=== PATIENT | male | born 1955 | race Caucasian/White ===

== ENCOUNTER 2017-02-24 12:52 | Emergency (ER) | payer OTHER ==
[~2017-02-24 12:52] MED LIST: ADVIN25/60 INH; ALBU1AER9 INH; ASPI81TA21 PO; ASTN; ATEN100T PO; FLNIN NAE; HYDR25TA4 PO; MELO15TA4 PO; MONT1TAB3 PO; OMEP40CA41 PO; TRIA0.1C20 TOP
[2017-02-24 12:57] VITALS: TEMP 36.8; Ht 180.3 cm
[2017-02-24] MEDS ORDERED: FLNIN NAE (13:39)
[2017-02-24] MEDS ORDERED: ALBU18002 INH (13:39)
--- NOTE | 2017-02-24 14:25 | DIAGNOSTIC IMAGING REPORT ---
R HAND MIN 3 VIEWS ROUTINE HISTORY: 61 years-old Male R hand little finger pain acute right fifth digit pain COMPARISON: None available TECHNIQUE: 3 views of the right hand FINDINGS: Subcortical cystic changes are seen within several of the metacarpals and phalanges. Mild interphalangeal joint space narrowing throughout. Subcortical cystic changes are also seen within the distal ulna. Note is made of 3 mm negative ulnar variance. Mild first carpometacarpal osteoarthritis. No acute fracture or dislocation. Soft tissues are unremarkable without opaque foreign body. IMPRESSION: 1. No acute fracture or dislocation. 2. Degenerative changes as above. The above report was generated using voice recognition software. It may contain grammatical, syntax or spelling errors. Electronically signed by: Mykel Willson M.D. 02/24/2017 2:24 PM Dictated Date/Time: 02/24/2017 2:21 PM
[2017-02-24] MEDS ORDERED: CEPH500C PO (14:26)
[2017-02-24] MEDS ORDERED: XYLOCAINE 1%/SOD BICARB 20 ML VIAL INFIL ONE (14:45)
[2017-02-24 15:40] VITALS: BP 144/86; PULSE 76; O2SAT 96
[2017-02-24 15:58] LABS: HEPATITIS B AB POS
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
== END 2017-02-24 16:17 | disposition home or self-care (01) ==
LOC: C.EDA 12:53 → C.EDD 16:17
DX: S61.256A Open bite of right little finger without damage to nail, initial encounter (principal); S61.257A Open bite of left little finger without damage to nail, initial encounter; S51.852A Open bite of left forearm, initial encounter; S41.152A Open bite of left upper arm, initial encounter; S60.511A Abrasion of right hand, initial encounter; S60.512A Abrasion of left hand, initial encounter; M25.511 Pain in right shoulder; Y04.1XXA Assault by human bite, initial encounter; Y99.0 Civilian activity done for income or pay; Y92.238 Other place in hospital as the place of occurrence of the external cause; I10 Essential (primary) hypertension; K21.9 Gastro-esophageal reflux disease without esophagitis; Z79.82 Long term (current) use of aspirin

== ENCOUNTER → 2017-06-05 | Day surgery (SDC) | payer OTHER ==
[2017-05-31 13:13] VITALS: Ht 180.3 cm; Wt 156.8 kg
[~2017-06-05] VITALS: Ht 180.3 cm; Wt 156.8 kg
[~2017-06-05] MED LIST changes: +ALBU18002 INH; -ALBU1AER9 INH; +AMOX500C3 PO; +FENTANYL CITRATE INJ 50 MCG/1 ML 2 ML VIAL ONE; +IBUP-1105 PO; +LIDOCAINE HCL 2% 2 ML VIAL (20MG/ML) ONE; +MIDAZOLAM HCL 1 MG/ML 2ML VIAL ONE; +PROPOFOL IV EMULSION 10 MG/ML 20 ML VIAL IV ONE; +PSEU60TA80 PO; +SODIUM CHLORIDE 0.9% 500ML 500 ML IV ONE; -TRIA0.1C20 TOP
--- NOTE | 2017-06-05 11:00 | Endo History and Physical ---
History & Physical Date of Service: Jun 05, 2017. Chief Complaint: HISTORY OF COLON POLYPS Referring Physician: DR AYALA History of Present Illness H/o polyps Past Medical History Arthritis, Asthma, Reflux, Hypertension, Other Past Surgical History Hx Cardiac Surgery: No Hx Internal Defibrillator: No Hx Pacemaker: No Hx Abdominal Surgery: Yes (JAIME) Hx of Implantable Prosthesis: No Hx Post-Op Nausea and Vomiting: No Hx Cancer Surgery: No Hx Thoracic Surgery: No Hx Orthopedic: Yes (LT TKA) Hx Urinary Tract Surgery: No Family History Esophogeal [place] Social History Smoking Status: Never Smoker Hx Substance Use: No Hx Alcohol Use: No Allergies Coded Allergies: Rivaroxaban (Verified Allergy, Severe, RASH, 06/05/17) [place] (Verified Adverse Reaction, Unknown, GENERALIZED RASH, 06/05/17) Fish Oil (Verified Adverse Reaction, Unknown, GENERALIZED RASH, 06/05/17) Current Medications Reported Home Medications Medications Dose Route/Sig Max Daily Dose Days Date Category Mucinex D (Pseudoephedrine-Guaifenesin) 1 Tab Tab 1 Tab PO BID PRN 05/31/17 Reported Ibuprofen 200 Mg Tab 2-3 Tabs PO Q4H PRN 05/31/17 Reported Amoxil (Amoxicillin) 500 Mg Cap 4 Cap PO UD PRN 05/31/17 Reported Fluticasone Propionate 50 Mcg/Act Spr 2 [place] TSERING DAILY PRN 02/24/17 Reported Proair Respiclick (Albuterol Sulfate) 108 Mcg/Act Aer 2 Puffs INH Q4 PRN 02/24/17 Reported Ecotrin Or Generic (Aspirin) 81 Mg Tab 81 Mg PO QPM 04/08/12 Reported Advair Diskus 250/50 60 Dose (Fluticasone Prop/Salmeterol) 1 Ea Aerp 1 Puff INH Q12HR PRN 04/08/12 Reported Astelin Nasal [place] (Azelastine Hcl) 200 Sprays/30 Ml [place] 2 Sprays NA BID PRN 04/08/12 Reported Singulair (Montelukast Sodium) 10 Mg Tab 10 Mg PO QPM 04/08/12 Reported Hctz (Hydrochlorothiazide) 25 Mg Tab 25 Mg PO QPM 04/08/12 Reported Mobic (Meloxicam) 15 Mg Tab 15 Mg PO QPM 04/08/12 Reported Tenormin (Atenolol) 100 Mg Tab 100 Mg PO QPM 04/08/12 Reported Prilosec (Omeprazole) 40 Mg Cap 40 Mg PO QPM 04/08/12 Reported Vital Signs Weight (Kilograms): 156.82 Height (Feet): 5 Height (Inches): 11 Date Time Temp Pulse Resp B/P (MAP) Pulse Ox O2 Delivery O2 Flow Rate FiO2 06/05/17 09:31 37.4 74 20 120/83 (95) 97 Room Air Physical Exam General Appearance: no apparent distress Respiratory/Chest: Auscultation: breath sounds normal Cardiovascular: Heart Auscultation: RRR Abdomen: Inspection & Palpation: soft Assessment and Plan H/o polyps - surveillance cscopy
--- NOTE | 2017-06-05 11:46 | Discharge Instructions ---
Endoscopy Patient Instructions Date / Procedure(s) Performed Jun 05, 2017. Colonoscopy Allergy Information Coded Allergies: Rivaroxaban (Verified Allergy, Severe, RASH, 06/05/17) [place] (Verified Adverse Reaction, Unknown, GENERALIZED RASH, 06/05/17) Fish Oil (Verified Adverse Reaction, Unknown, GENERALIZED RASH, 06/05/17) Discharge Date / Findings Jun 05, 2017. Diminutive cecal polyp Medication Instructions Stopped Medication(s): ASPIRIN [id number] MOBIC 06-02-17 Resume aspirin, mobic tomorrow. Provider Instructions Activity Restrictions - No exercising or heavy lifting for 24 hours. - Do not drink alcohol the day of the procedure. - Do not drive a car or operate machinery until the day after the procedure. - Do not make any important decisions or sign important papers in 24 hours after the procedure. Following Day: - Return to full activity which may include returning to work/school. Diet Start your diet with liquids and light foods (jello, soup, juice, toast). Then eat your usual diet if not nauseated. Treatment For Common After Affects For mild abdominal pain, bloating, or excessive gas: - Rest - Eat lightly - Lie on right side Follow-Up Information Follow-up with DR AYALA as scheduled Anesthesia Information What You Should Know You have had a procedure that required some medicine to reduce anxiety and discomfort. This treatment is called moderate sedation. After receiving the treatment, you may be sleepy, but you will be able to breathe on your own. The effects of the treatment may last for several hours. Follow these instructions along with Activity/Diet recommendations noted above: * Do NOT do anything where dizziness or clumsiness would be dangerous. * Rest quietly at home today, then you can be up and about tomorrow. * Have a responsible person stay with you the rest of today. * You may have had an I.V. today. If so, you may take the dressing off later today. Recommendations Call your doctor if: * Trouble breathing * Continuous vomiting for more than 24 hours * Temperature above 101 degrees * Severe abdominal pain or bloating * Pain not relieved by pain medicine ordered * There is increased drainage or redness from any incision * A large amount of rectal bleeding greater than 2-3 tablespoons. (If you had a polyp/s removed or have hemorrhoids, a small amount of blood - from the rectum is to be expected.) * You have any unanswered questions or concerns. IN THE EVENT OF A SERIOUS EMERGENCY, GO TO THE NEAREST EMERGENCY ROOM Your discharge instructions were prepared by provider Robert Best. Patient Instructions Signature Page Alex Henriquez Patient (or Guardian) Signature/Date: I have read and understand the instructions given to me by my caregivers. Caregiver/RN/Doctor Signature/Date: The above-named patient and/or guardian has received patient instructions on this date. + Original Patient Signature Page (only) stays with chart. Please make copy for patient.
--- NOTE | 2017-06-05 11:56 | GI REPORT ---
Procedure Date: 06/05/2017 10:14 AM Procedure: Colonoscopy Indications: High risk colon cancer surveillance: Personal history of colonic polyps, Last colonoscopy: February 2016 Medicines: See the Anesthesia note for documentation of the administered medications Complications: No immediate complications. Estimated Blood Loss: Estimated blood loss: none. Procedure: Pre-Anesthesia Assessment: - ASA Grade Assessment: III - A patient with severe systemic disease. After I obtained informed consent, the scope was passed under direct vision. Throughout the procedure, the patient's blood pressure, pulse, and oxygen saturations were monitored continuously. The Scope was introduced through the anus and advanced to the cecum, identified by appendiceal orifice and ileocecal valve. The colonoscopy was performed without difficulty. The patient tolerated the procedure well. The quality of the bowel preparation was good. Findings: The perianal and digital rectal examinations were normal. A few small-mouthed diverticula were found in the sigmoid colon. A 4 mm polyp was found in the cecum. The polyp was sessile. The polyp was removed with a cold biopsy forceps. Resection and retrieval were complete. The exam was otherwise without abnormality. Impression: - Diverticulosis in the sigmoid colon. - One 4 mm polyp in the cecum, removed with a cold biopsy forceps. Resected and retrieved. - The examination was otherwise normal. Recommendation: - Repeat exam in 3 years. - Discharge patient to home. Robert Yap M.D. Robert Yap MD 06/05/2017 11:55:49 AM This report has been signed electronically. Note Initiated On: 06/05/2017 10:14 AM I attest to the content of the Intraoperative Record and orders documented therein, exceptions below
--- NOTE | 2017-06-05 12:10 | Anesthesiology Progress Note ---
Anesthesia Post Op Note Date & Time Jun 05, 2017 at 12:10 Vital Signs Pain Intensity: 0 Vital Signs Past 12 Hours Date Time Temp Pulse Resp B/P (MAP) Pulse Ox O2 Delivery O2 Flow Rate FiO2 06/05/17 11:44 55 13 146/88 (107) 100 Room Air 06/05/17 09:31 37.4 74 20 120/83 (95) 97 Room Air Notes Mental Status: alert / awake / arousable, participated in evaluation Pt Amnestic to Procedure: Yes Nausea / Vomiting: adequately controlled Pain: adequately controlled Airway Patency, RR, SpO2: stable & adequate BP & HR: stable & adequate Hydration State: stable & adequate Anesthetic Complications: no major complications apparent
[2017-06-05 12:15] VITALS: BP 155/85; PULSE 60; O2SAT 97
== END | disposition home or self-care (01) ==
LOC: C.GI 09:06
PROVIDERS: ATTEND Internal Medicine Gastroenterology
DX: Z12.11 Encounter for screening for malignant neoplasm of colon (principal); D12.0 Benign neoplasm of cecum; Z86.010 Personal history of colon polyps; K57.30 Diverticulosis of large intestine without perforation or abscess without bleeding; M19.90 Unspecified osteoarthritis, unspecified site; J45.909 Unspecified asthma, uncomplicated; K21.9 Gastro-esophageal reflux disease without esophagitis; I10 Essential (primary) hypertension; Z79.899 Other long term (current) drug therapy